=== PATIENT | male | born 1970 | race Caucasian/White ===

== ENCOUNTER 2021-02-16 07:52 | Emergency (ER) | payer BC ==
[2021-02-16 08:08] VITALS: BP 144/97; PULSE 114; TEMP 98.5; BMI 33.4
[2021-02-16] MEDS ORDERED: DEXAMETHASONE SOD PHOSPHATE 10 MG/1 ML VIAL IM ONE (08:18)
[2021-02-16] MEDS ORDERED: FAMOTIDINE 20 MG TABLET PO ONE (08:18)
[2021-02-16] MEDS ORDERED: diphenhydrAMINE HCL 25 MG CAPSULE (FP) PO ONE ×2 (08:18→08:20)
[2021-02-16] MEDS ORDERED: DEXAMETHASONE SOD PHOSPHATE 10 MG/1 ML VIAL ONE (08:20)
[2021-02-16] MEDS ORDERED: FAMOTIDINE 20 MG TABLET ONE (08:20)
== END 2021-02-16 08:47 | disposition home or self-care (01) ==
LOC: JER 07:52 → JERFT 07:52
PROC: 3E023GC Introduction of Other Therapeutic Substance into Muscle, Percutaneous Approach (ICD-10-PCS; principal; 2021-02-16)
DX: T78.40XA Allergy, unspecified, initial encounter (principal)
CPT/HCPCS: 99284-25; J1100

== ENCOUNTER 2021-05-17 00:21 | Emergency (ER) | payer BC ==
[2021-05-17 00:36] VITALS: BP 152/92; PULSE 79; TEMP 98.4; BMI 33.4
[2021-05-17] MEDS ORDERED: DIPHTH,PERTUSS(ACELL),TET 0.5 ML DISP.SYRIN IM ONE ×2 (01:02→01:13)
== END 2021-05-17 01:35 | disposition home or self-care (01) ==
LOC: JER 00:21
PROC: 0HQGXZZ Repair Left Hand Skin, External Approach (ICD-10-PCS; principal; 2021-05-17)
PROC: 3E0234Z Introduction of Serum, Toxoid and Vaccine into Muscle, Percutaneous Approach (ICD-10-PCS; 2021-05-17)
DX: S61.012A Laceration without foreign body of left thumb without damage to nail, initial encounter (principal)
CPT/HCPCS: 90715; 99284-25

== ENCOUNTER 2021-06-02 00:11 | Emergency (ER) | payer BC ==
[2021-06-02 00:37] VITALS: BP 132/88; PULSE 74; TEMP 98.6; BMI 33.4
[2021-06-02] MEDS ORDERED: ACETAMINOPHEN 325 MG TABLET (FP) PO ONE (01:54)
[2021-06-02] MEDS ORDERED: ACETAMINOPHEN 325 MG TABLET (FP) ONE (02:03)
== END 2021-06-02 04:21 | disposition home or self-care (01) ==
LOC: JER 00:11
DX: S82.51XA Displaced fracture of medial malleolus of right tibia, initial encounter for closed fracture (principal); V49.40XA Driver injured in collision with unspecified motor vehicles in traffic accident, initial encounter
CPT/HCPCS: 73564-TC-RT-FY; 73610-TC-LT-FY; 73630-TC-LT; 99284-25

== ENCOUNTER 2021-06-07 14:22 | Emergency (ER) | payer BC ==
[2021-06-07 14:25] VITALS: BP 127/85; PULSE 77; TEMP 98.2; BMI 33.4
== END 2021-06-07 15:14 | disposition home or self-care (01) ==
LOC: JERFT 14:22
DX: Z48.02 Encounter for removal of sutures (principal)
CPT/HCPCS: 99281-25